=== PATIENT | female | born 1980 | race African-American/Black ===

== ENCOUNTER 2019-04-19 23:18 | Emergency (ER) | payer OTHER ==
[~2019-04-19] VITALS: Ht 170.2 cm; Wt 68.6 kg
[2019-04-19 23:25] VITALS: BP 157/75; PULSE 83; RESP 16; Ht 170.2 cm; Wt 68.6 kg
[2019-04-20] MEDS ORDERED: KETOROLAC 60 MG INJ IM STA (00:19)
[2019-04-20] MEDS ORDERED: CYCL10TA7 PO (00:20)
[2019-04-20] MEDS ORDERED: HYDR-4011 PO (00:20)
[2019-04-20] MEDS ORDERED: MED4DP PO (00:20)
[2019-04-20] MEDS ORDERED: NAPR-985 PO (00:20)
[2019-04-20] MEDS ORDERED: DEXAMETHASONE 10 MG/ML 1 ML INJ IM ONE (00:30)
--- NOTE | 2019-04-20 00:47 | ERD ---
ER Documentation Chief Complaint Chief Complaint CHRONIC BACK PAIN HPI 38-year-old female presenting with chronic back pain. Patient states that she is been dealing with this over the last 2 years however her back spasms have worsened over the last 2 weeks. She has some pain running down her right buttock. Denies any recent falls or traumatic injuries. Denies any fevers. Has not taken any medications for symptoms. Denies medical problems. NKDA. Surgical history denies. Social history denies ROS All systems reviewed and are negative except as per history of present illness. Medications Home Meds Active Scripts Methylprednisolone* (Medrol* DOSE PACK) 4 Mg/Dose-Pack Tab.ds.pk, 4 MG PO . DIRECTED, #1 PACKET Prov:AVI MANLEY PA-C 04/20/19 Cyclobenzaprine Hcl* (Cyclobenzaprine Hcl*) 10 Mg Tablet, 10 MG PO TID, #15 TAB Prov:AVI MANLEY PA-C 04/20/19 Naproxen* (Naprosyn*) 500 Mg Tablet, 500 MG PO BID PRN for PAIN AND/OR INFLAMMATION, #30 TAB Prov:AVI MANLEY PA-C 04/20/19 Hydrocodone/Acetaminophen ([place] 5-325 Tablet) 1 Each Tablet, 1 TAB PO Q6H PRN for PAIN, #7 TAB Prov:AVI MANLEY PA-C 04/20/19 Allergies Allergies: Coded Allergies: No Known Allergy (Unverified , 04/19/19) FmHx Family History: No diabetes, No coronary disease, No other Physical Exam Vitals Vital Signs Date Temp Pulse Resp B/P (MAP) Pulse Ox O2 O2 Flow FiO2 Time Delivery Rate 04/19/19 97.8 83 16 157/75 100 23:25 (102) Physical Exam GENERAL: The patient is well-appearing, well-nourished, in no acute distress CHEST: Clear to auscultation bilaterally. There are no rales, wheezes or rhonchi. HEART: Regular rate and rhythm. No murmurs, clicks, rubs or gallops. BACK: Tender to palpation of the right-sided paraspinous muscles. Tender to palpation over the right buttock. EXTREMITIES: Equal pulses bilaterally. There is no peripheral clubbing, cyanosis or edema. No focal swelling or erythema. Full range of motion. Grossly neurovascularly intact. NEUROLOGIC: Alert and oriented. Cranial nerves II through XII intact. Motor strength in all 4 extremities with 5 out of 5 strength. Sensation grossly intact. Normal speech and gait. Babinski negative. DTR 2+ throughout. SKIN: There is no apparent rash or petechiae. The skin is warm and dry. Results 24 hrs Current Medications Medications Dose Sig/Rosanna Start Time Status Last (Trade) Ordered Route PRN Stop Time Admin Dose Reason Admin Ketorolac 60 mg ONCE STAT 04/20/19 DC Tromethamine IM 00:19 (Toradol) 04/20/19 00:20 10 mg ONCE ONCE 04/20/19 DC Dexamethasone IM 00:30 (Decadron) 04/20/19 00:31 Procedures/MDM ER course: Toradol and Decadron given in ED. MDM: 38-year-old female presenting with pain to back. Patient's pain is likely associated muscular skeletal strain and spasm. I have low suspicion for acute fracture dislocation. I have low suspicion for infectious process. I have low suspicion for cauda equina, discitis or epidural abscess. Patient is discharged with supportive medications and told to follow-up with primary care within 1 to 2 days for close evaluation. Patient is told symptoms change or worsen to return immediately to the ER. All questions answered at discharge Departure Diagnosis: Primary Impression: Back pain Condition: Stable Patient Instructions: Back Pain W/ Sciatica Referrals: [facility] YOU HAVE RECEIVED A MEDICAL SCREENING EXAM AND THE RESULTS INDICATE THAT YOU DO NOT HAVE A CONDITION THAT REQUIRES URGENT TREATMENT IN THE EMERGENCY DEPARTMENT. FURTHER EVALUATION AND TREATMENT OF YOUR CONDITION CAN WAIT UNTIL YOU ARE SEEN IN YOUR DOCTORS OFFICE WITHIN THE NEXT 1-2 DAYS. IT IS YOUR RESPONSIBILITY TO MAKE AN APPOINTMENT FOR FOLOW-UP CARE. IF YOU HAVE A PRIMARY DOCTOR --you should call your primary doctor and schedule an appointment IF YOU DO NOT HAVE A PRIMARY DOCTOR YOU CAN CALL OUR PHYSICIAN REFERRAL HOTLINE AT IF YOU CAN NOT AFFORD TO SEE A PHYSICIAN YOU CAN CHOSE FROM THE FOLLOWING [facility] [address] [facility] [address] [facility] [address] [facility] [address] [facility]. [facility] [address] [facility] [address] [facility] [address] Additional Instructions: FOLLOW UP WITH YOUR PRIMARY CARE PHYSICIAN TOMORROW.Return to this facility if you are not improving as expected. AVI MANLEY PA-C Apr 20, 2019 00:47
== END 2019-04-20 01:15 | disposition home or self-care (01) ==
LOC: FTE 23:18
DX: M54.9 Dorsalgia, unspecified (principal)
CPT/HCPCS: 81025; J1100; J1885; 96372